=== PATIENT | female | born 1950 | race Caucasian/White ===

== ENCOUNTER 2024-09-23 08:34 | Outpatient (AMB) | payer MEDICARE, SELFPAY ==
--- NOTE | 2024-09-23 08:52 | A.OFFVIS_ITS ---
Vital Signs 09/23/24 09:00 Height 5 ft 2 in Weight 171 lb 4 oz BMI 31.3 BP 110/64 Blood Pressure Location Rt brachial Position Sitting Pulse 80 Pulse Source Pulse Oximeter Pulse Oximetry (%) 94 Oxygen Delivery Method Room Air Intake Visit Reasons: ENP-Ocular Vestibular Migraine Intake Note: Patient presents for a new patient evaluation and treatment for ocular vestibular migraine. Television Engineering Teacher Required: No Accompanied by: Spouse Allergies amlodipine [From Norvasc] Allergy (Verified 09/23/24 08:51) Swelling amoxicillin [From Amoxil] Allergy (Verified 09/23/24 08:51) Itching bacitracin [From Neosporin ([id number])] Allergy (Verified 09/23/24 08:51) Unknown dulaglutide [From Trulicity] Allergy (Verified 09/23/24 08:51) Unknown lisinopril Allergy (Verified 09/23/24 08:51) Cough neomycin [From Neosporin ([id number])] Allergy (Verified 09/23/24 08:51) Unknown polymyxin B [From Neosporin (joz-wav-amizq)] Allergy (Verified 09/23/24 08:51) Unknown HPI Comments Details: 74y/o femal eocmes for neurological evaluation . On July 11 she woke up with dizziness ( vertigo) , feeling off balance , visual aura( saw geometric patterns in both her visual hood. The visual aura lasted about 10-15 minutes and the dizziness lasted about 45 minutes. she did not have headaches associate dwith it. she did not have any weakness, numbness or double vision. she has h/o migraines but has been migraine free sin emenopause. she also has h/o vertigo - BPV and usually vestibular therapy helps her. she has JESSA and was on CPAP but stopped using it when she lost weight. she still has snoring and some daytime fatigue. In 2000 she had a thalamic stroke with left eye pain and face weakness and has been on aspirin 650mg qd [facility].she was also seen by ENT in the past for sudden hearing loss. [facility] Medical History Vertigo Visual aura Unspecified vitamin D deficiency Tubular adenoma of colon Poorly controlled type 2 diabetes mellitus JESSA (obstructive sleep apnea) Nonproliferative diabetic retinopathy Migraine Hyperlipidemia Hypertension CVA (cerebral vascular accident) Goiter Depression Degenerative joint disease (DJD) of lumbar spine Allergic rhinitis Acid reflux Surgical History History of lateral meniscus repair of right knee History of dental surgery Hx of cholecystectomy Family History Father Diabetes Social History Alcohol intake: current Comment: Socially Patient Tobacco Use Status: Never used Tobacco Physical Exam Vital Signs: Last Vital Signs Pulse 80 09/23/24 09:00 BP 110/64 09/23/24 09:00 Pulse Ox 94 09/23/24 09:00 Oxygen Delivery Method Room Air 09/23/24 09:00 BMI result Body Mass Index 31.3 Const General: cooperative, healthy appearing, comfortable and no acute distress Nutritional Appearance: average body habitus Orientation/consciousness: patient oriented x3 Eyes Pupils: Equal, round and reactive pupils present Neuro Other: left facial droop- weakness Mallampatti grade 4 General: patient oriented x3, gait normal, tone normal, moves all extremities and no focal motor deficits Cranial nerves: Yes Facial sensation intact/muscles of mastication intact, Yes Equal, round and reactive pupils present, Yes Bilaterally intact EOM present, Yes Nystagmus not present, Yes Midline tongue present, Yes Symmetric palate elevation present and Yes Ability to bilaterally elevate shoulders present Cognition (Neuro): normal cognition Gait exam (Neuro): Normal gait present Motor exam (neuro): 5/5 motor strength present throughout and Normal motor muscle tone present throughout Deep tendon reflexes (DTR's): Right triceps reflex intensity grade: 2+, Left triceps reflex intensity grade: 2+, Rt Biceps (C5, C6): 2+, Left biceps reflex intensity grade: 2+, Right brachioradialis reflex intensity grade: 2+, Left brachioradialis reflex intensity grade: 2+, Right patellar reflex intensity grade: 2+, Left patellar reflex intensity grade: 2+, Right ankle reflex intensity grade: 1+ and Left ankle reflex intensity grade: 1+ Coordination: [id number] test normal Assessment & Plan Assessment & Plan (1) Visual aura: Comment: ? ocular migraine ? TIA Code(s): H53.9 - Unspecified visual disturbance Category: Medical (2) Vertigo: Comment: Migraine? BPV Code(s): R42 - Dizziness and giddiness Category: Medical (3) JESSA (obstructive sleep apnea): Comment: not on CPAP Code(s): G47.33 - Obstructive sleep apnea (adult) (pediatric) Category: Medical Plan MRI Brain to evaluate for vascular changes SLeep stduy to reevaluate sleep apnea Continue aspirin 325 mg 2tabs qd Monitor for any new symptoms and go to ER for any new neurological symptoms Orders: Orders MR head/brain wo con Today G43.109 - Migraine with aura, not intractable, without status migrainosus, R42 - Dizziness and giddiness RT home sleep study Today G47.10 - Hypersomnia, unspecified, R06.83 - Snoring Coding Level of Care Code New Pt Level 4 (93373) Diagnoses Visual aura H53.9 Vertigo R42 JESSA (obstructive sleep apnea) G47.33
--- OUTSIDE RECORDS SUMMARY | 2024-09-23 08:58 | XMS_ITS | Clinical Summary ---
Author Organization [facility] it Address [address] [place] [address] Care Team Providers Care Lamination Machine Operator Name Role Phone Unavailable Primary Care Provider Unavailabl e Medications omeprazole (PriLOSEC) [address] capsuleIndicati ons:Gastroesoph ageal reflux disease without esophagitis TAKE 1 CAPSULE BY MOUTH EVERY DAY IN THE MORNING 90 capsule 5 Active omeprazole (PriLOSEC) [address] capsuleIndicati ons:Gastroesoph ageal reflux disease without esophagitis TAKE 1 CAPSULE BY MOUTH EVERY DAY IN THE MORNING 90 capsule 5 025 Discontinued Encounters Date Type Department Care Team Description 06/24/2024 Telephone Gastroenterology - [address] [address] Felix Valladares MD from Last 3 Months Social History Tobacco Use Types Packs/Day Years Used Date Smoking Tobacco: Never Assessed Comments Unknown Sex and Gender Information Value Date Recorded Sex Assigned at Not on file Legal Sex Female 10:54 AM EST Gender Identity Not on file Sexual Orientation Not on file Plan of Treatment Health Maintenance Due Date Last Done Comments Breast Cancer Screening 1950 DTaP,Tdap,and Td Vaccines (1 - Tdap) 1970 Pneumococcal Vaccine: 50+ Ye ars (1 of 1 - PCV) 2001 Zoster Vaccines (1 of 2) 2001 Colorectal Cancer Screening: Colonoscopy 03/19/2022 Depression Screening 03/19/2022 Falls Risk Assessment 03/19/2022 Hepatitis C Screening 03/19/2022 Osteoporosis Screening (Bone Density Screening) 03/19/2022 Social Influencers of Health Screening 03/19/2022 COVID-19 Vaccine (2023-2 5 season) 2023 Influenza Vaccine (Season Ended) 2024 RSV Immunization Adult Patie nts (1 - 1-dose 75+ series) 2026 HIB Vaccines Aged Out No longer eligi ble based on patient's age to complete this topic HPV Vaccines Aged Out No longer eligi ble based on patient's age to complete this topic Hepatitis A Vaccines Aged Out No long er eligible based on patient's age to complete this topic Hepatitis B Vaccines Aged Out No long er eligible based on patient's age to complete this topic IPV Vaccines Aged Out No longer eligi ble based on patient's age to complete this topic MMR Vaccines Aged Out No longer eligi ble based on patient's age to complete this topic Meningococcal ACWY Vaccine Aged Out N o longer eligible based on patient's age to complete this topic Meningococcal B Vaccine Aged Out No l onger eligible based on patient's age to complete this topic RSV Immunization Patients Un juwan 20 months Aged Out No longer eligible b ased on patient's age to complete this topic Varicella Vaccines Aged Out No longer eligible based on patient's age to complete this topic
[2024-09-23 09:00] VITALS: BP 110/64; PULSE 80; O2SAT 94; BMI 31.3
== END 2024-09-23 09:48 | disposition home or self-care (01) ==
LOC: HO.HSMS 08:35
PROVIDERS: PCP Internal Medicine; Visit Provider Psychiatry & Neurology Neurology
DX: H53.9 Unspecified visual disturbance (principal); R42 Dizziness and giddiness; G47.33 Obstructive sleep apnea (adult) (pediatric)
CPT/HCPCS: 99204

== ENCOUNTER → 2024-09-23 08:34 | Outpatient (BNVA) | payer MEDICARE, SELFPAY | PROVIDERS: PCP Internal Medicine; Visit Provider Psychiatry & Neurology Neurology | DX: H53.9 Unspecified visual disturbance (principal); R42 Dizziness and giddiness; G47.33 Obstructive sleep apnea (adult) (pediatric) | CPT/HCPCS: 99202 ==

== ENCOUNTER 2024-10-02 08:56 | Outpatient (REF) | payer MEDICARE, SELFPAY ==
--- NOTE | ~2024-10-02 | MR_ITS ---
EXAMINATION: MR BRAIN WITHOUT CONTRAST CLINICAL INFORMATION: Dizziness and giddiness COMPARISON: None available. TECHNIQUE: MRI of the brain was obtained using routine sequences without contrast. FINDINGS: No restricted diffusion. No acute intracranial hemorrhage, mass effect, midline shift, hydrocephalus or herniation. Martino-white matter differentiation is normal. Bilateral multifocal patchy and confluent deep periventricular white matter hyperintense T2 FLAIR signal involving centrum semiovale and heath radiata. Multifocal old lacunar infarct, basal ganglia and extracapsular, the largest in the right thalamus with susceptibility signal and wallerian degeneration into the right cerebral peduncle/midbrain. Prominence of the extra-axial CSF spaces cerebral sulci and ventricles involving mostly the bifrontal and to a lesser extent biparietal poles. Dystrophic calcifications in the anterior interhemispheric falx. Flow-void signal within the main cerebral vessels is normal. Sellar/suprasellar region demonstrated no signal abnormality or masses. Craniocervical junction demonstrates normal position of the cerebellar tonsils. MR/MR head/brain wo con IMPRESSION: No acute stroke/nonhemorrhagic ischemia. Small vessel occlusive disease. Multifocal old lacunar infarcts, the largest with old blood products right thalamus. Bifrontal and to a lesser extent biparietal atrophy. Electronically signed by: Amos Gill MD 10/04/2024 07:53 AM EDT
== END 2024-10-02 08:57 | disposition home or self-care (01) ==
LOC: HO.MRI 08:56
PROVIDERS: PCP Internal Medicine; Visit Provider Psychiatry & Neurology Neurology
DX: G43.109 Migraine with aura, not intractable, without status migrainosus (principal); R42 Dizziness and giddiness
CPT/HCPCS: 70551

== ENCOUNTER → 2024-10-02 08:56 | Outpatient (BNV) | payer MEDICARE, SELFPAY | PROVIDERS: PCP Internal Medicine; Visit Provider Radiology Diagnostic Radiology | DX: R42 Dizziness and giddiness (principal) | CPT/HCPCS: 70551 ==

== ENCOUNTER → 2024-12-09 09:08 | Outpatient (REF) | payer MEDICARE, SELFPAY ==
--- OUTSIDE RECORDS SUMMARY | 2024-12-09 10:13 | XMS_ITS | Clinical Summary ---
Author Organization [facility] it Address [address] [place] [address] Care Team Providers Care Mice Raiser Name Role Phone Unavailable Primary Care Provider Unavailabl e Medications omeprazole (PriLOSEC) [address] Barnhart ns:Gastroesophag eal reflux disease without esophagitis TAKE 1 CAPSULE BY MOUTH EVERY DAY IN THE MORNING 90 capsule 09/06/2024 Active Social History Tobacco Use Types Packs/Day Years Used Date Smoking Tobacco: Never Assessed Comments Unknown Sex and Gender Information Value Date Recorded Sex Assigned at Not on file Legal Sex Female 10:54 AM EST Gender Identity Not on file Sexual Orientation Not on file Plan of Treatment Upcoming Encounters Date Type Department Care Team ([facility] st Contact Info) Description 03/15/2025 11:00 AM EST Office Visit Gastroenterology - [address] [phone] All Casey MD [address] [address] Health Maintenance Due Date Last Done Comments Breast Cancer Screening 1950 DTaP,Tdap,and Td Vaccines (1 - Tdap) 1970 Pneumococcal Vaccine: 50+ Ye ars (1 of 1 - PCV) 2001 Zoster Vaccines (1 of 2) 2001 Colorectal Cancer Screening: Colonoscopy 03/19/2022 Falls Risk Assessment 03/19/2022 Hepatitis C Screening 03/19/2022 Medicare Annual Wellness Visit 03/19/2022 Osteoporosis Screening (Bone Density Screening) 03/19/2022 Social Influencers of Health Screening 03/19/2022 COVID-19 Vaccine (1 - 2023-2 5 season) 2023 Depression Screening 04/21/2024 Influenza Vaccine (#1) 2024 RSV Immunization Adult Patie nts (1 [...] on patient's age to complete this topic Insurance MEDICARE [facility]
== END ==
LOC: HO.SL 09:08
PROVIDERS: PCP Internal Medicine; Visit Provider Psychiatry & Neurology Neurology
DX: R06.83 Snoring (principal); G47.10 Hypersomnia, unspecified
CPT/HCPCS: 95806

== ENCOUNTER → 2024-12-09 09:53 | Outpatient (BNV) | payer MEDICARE, SELFPAY | PROVIDERS: PCP Internal Medicine; Visit Provider Psychiatry & Neurology Neurology | DX: G47.33 Obstructive sleep apnea (adult) (pediatric) (principal) | CPT/HCPCS: 95806 ==

== ENCOUNTER 2025-01-24 09:53 | Outpatient (AMB) | payer MEDICARE, SELFPAY ==
--- NOTE | 2025-01-24 09:56 | MHC.OFFVIS ---
Vital Signs 01/24/25 09:57 Height 5 ft 2 in Weight 169 lb 2 oz BMI 30.9 BP 132/80 Blood Pressure Location Rt brachial Position Sitting Pulse 90 Pulse Source Pulse Oximeter Pulse Oximetry (%) 95 Oxygen Delivery Method Room Air Intake Visit Reasons: 4m follow up Intake Note: Follow up JESSA not on CPAP, Migraine ? TIA, Dizziness and Giddiness Human Resources Benefits Assistant Required: No Accompanied by: Spouse Allergies amlodipine (From Norvasc) Allergy (Verified 01/24/25 09:56) Swelling amoxicillin (From Amoxil) Allergy (Verified 01/24/25 09:56) Itching bacitracin (From Neosporin ([id number]-ubg-afnpr)) Allergy (Verified 01/24/25 09:56) Unknown dulaglutide (From Trulicity) Allergy (Verified 01/24/25 09:56) Unknown lisinopril Allergy (Verified 01/24/25 09:56) Cough neomycin (From Neosporin (wpi-rme-irxch)) Allergy (Verified 01/24/25 09:56) Unknown polymyxin B (From Neosporin (lsh-mle-mzgcv)) Allergy (Verified 01/24/25 09:56) Unknown Medication List - Last Reconciled 01/24/25 by Fawn Devlin MD aspirin (Ecotrin) 650 mg PO DAILY atorvastatin 20 mg PO DAILY blood sugar diagnostic (Transparency SoftwareTouch Ultra Test strips) As directed cholecalciferol (vitamin D3) 25 mcg PO DAILY empagliflozin (Jardiance) 25 mg PO DAILY fluticasone propionate 50 mcg/actuation 2 sprays intranasal DAILY furosemide 20 mg PO DAILY gabapentin mg PO glimepiride 4 mg PO BID irbesartan 150 mg PO DAILY levothyroxine mcg PO metformin ER 500 mg PO BID nystatin topical BID omeprazole 20 mg PO DAILY prucalopride (Motegrity) 2 mg PO DAILY semaglutide (Ozempic) 2 mg subcut QWEEK triamterene-hydrochlorothiazid 37.5-25 mg 1 cap PO DAILY HPI Comments Details: 74y/o female comes for follow up.No dizziness since her last visit.No headaches since last visit. On July 11 she woke up with dizziness ( vertigo) , feeling off balance , visual aura( saw geometric patterns in both her visual ohod. The visual aura lasted about 10-15 minutes and the dizziness lasted about 45 minutes. she did not have headaches associated with it. she did not have any weakness, numbness or double vision. she has h/o migraines but has been migraine free since menopause. she also has h/o vertigo - BPV and usually vestibular therapy helps her. she has JESSA and was on CPAP but stopped using it when she lost weight. she still has snoring and some daytime fatigue. HST 12/2024- mild sleep apnea. AHI 6 O2 lesley 86% In 2000 she had a thalamic stroke with left eye pain and face weakness and has been on aspirin 650mg qd [facility].she was also seen by ENT in the past for sudden hearing loss. [facility] Medical History Vertigo Visual aura Unspecified vitamin D deficiency Tubular adenoma of colon Poorly controlled type 2 diabetes mellitus JESSA (obstructive sleep apnea) Nonproliferative diabetic retinopathy Migraine Hyperlipidemia Hypertension CVA (cerebral vascular accident) Goiter Depression Degenerative joint disease (DJD) of lumbar spine Allergic rhinitis Acid reflux Surgical History History of lateral meniscus repair of right knee History of dental surgery Hx of cholecystectomy Family History Father Diabetes Social History Alcohol intake: current Comment: Socially Patient Tobacco Use Status: Never used Tobacco Physical Exam Vital Signs: Last Vital Signs Pulse 90 01/24/25 09:57 BP 132/80 01/24/25 09:57 Pulse Ox 95 01/24/25 09:57 Oxygen Delivery Method Room Air 01/24/25 09:57 BMI result Body Mass Index 30.9 Results Reviewed Results Reviewed: MRI Brain - 2024 No acute stroke/nonhemorrhagic ischemia. Small vessel occlusive disease. Multifocal old lacunar infarcts, the largest with old blood products right thalamus. Bifrontal and to a lesser extent biparietal atrophy. Assessment & Plan Assessment & Plan (1) Visual aura: Comment: ? ocular migraine ? TIA Code(s): H53.9 - Unspecified visual disturbance Category: Medical (2) Vertigo: Comment: Migraine? BPV Code(s): R42 - Dizziness and giddiness Category: Medical (3) JESSA (obstructive sleep apnea): Comment: mild on HST Code(s): G47.33 - Obstructive sleep apnea (adult) (pediatric) Category: Medical Plan MRI Brain reviewed . discussed about diabetes control SLeep study - mild - AHI 6 O2 lesley 86% Continue aspirin 325 mg 2tabs qd Monitor for any new symptoms and go to ER for any new neurological symptoms Coding Level of Care Code Est Pt Level 4 (24460) Complex EM visit Add On G2211 Diagnoses Visual aura H53.9 Vertigo R42 JESSA (obstructive sleep apnea) G47.33
[2025-01-24 09:57] VITALS: BP 132/80; PULSE 90; O2SAT 95; BMI 30.9
--- OUTSIDE RECORDS SUMMARY | 2025-01-24 11:20 | XMS_ITS | Encounter Summary ---
Author Organization [facility] Address [address] [place] [address] Phone Care Team Providers Care Pumping Supervisor Name Role Phone Jodi Ochoa MD Primary Care Provider Encounter Details Date Type Department Care Team (Late st Contact Info) Description 01/13/2025 Orders Only [facility] [address] [place] [phone] Jazzy Mcfarland [place], [place] [address] [place] [address] [email or web address] Acquired hypothyroidism; Type 2 diabetes mellitus with peripheral neuropathy Social History Tobacco Use Types Packs/Day Years Used Date Smoking Tobacco: Never Passive Smoke Exposure: Past Smokeless Tobacco: Never Passive Exposure Comments:kristen mcnally was a chainsmoker at home Alcohol Use Standard Drinks/Week Comments Yes 7 (1 standard drink = 0.6 oz pur e alcohol) glass of wine with dinner Education Answer Date Recorded Are you interested in more education? Not on stephen e 08/16/2022 Are you concerned about learning? Not on file 08/16/2022 No 08/16/2022 No 08/16/2022 Digital Access Answer Date Recorded No 09/13/2022 No 09/13/2022 Reliable internet access at home? Not on file 09/13/2022 Device with a working camera? Not on file Comments No Sex and Gender Information Value Date Recorded Sex Assigned at Not on file Legal Sex Female 1:41 PM EDT Gender Identity Not on file Sexual Orientation Not on file documented as of this encounter Progress Notes * Juani Coe MD - 01/13/2025 9:12 AM EDT Rx sent documented in this encounter Plan of Treatment Upcoming Encounters Date Type Department Care Team (Late st Contact Info) Description 04/04/2025 10:20 AM EST Office Visit [facility] [place] [address] [place] [address] Danielle Tejeda PA-C [address] [place] [phone] [email or web address] 07/11/2025 10:20 AM EDT Office Visit [facility] [place] [address] [place] [address] Juani Coe MD [address] [address] [email or web address] documented as of this encounter Procedures Procedure Name Priority Date/Time Associated Diagnosis Comments HEMOGLOBIN A1C Routine 01/01/2025 9:13 AM EDT Type 2 diabetes mellitus with peripheral neuropathy ASPARTATE AMINOTRANSFERASE (AST) Routine 01/01/2025 9:13 AM EDT Type 2 diabetes mellitus with peripheral neuropathy ALANINE AMINOTRANSFERASE (ALT) Routine 01/01/2025 9:13 AM EDT Type 2 diabetes mellitus with peripheral neuropathy BASIC METABOLIC PANEL Routine 01/01/2025 9:13 AM EDT Type 2 diabetes mellitus with peripheral neuropathy TSH WITH REFLEX Routine 01/01/2025 9:13 AM EDT Acquired hypothyroidism documented in this encounter Results * Hemoglobin A1c (01/01/2025 9:13 AM EDT) Blood Juani Coe MD LAB BLOOD ORDERABLES F inal Result Performing Organization Address [facility]/ZIP Co de Phone Number [address] [address] * Aspartate aminotransferase (AST) (01/01/2025 9:13 AM EDT) Blood Juani Coe MD LAB BLOOD ORDERABLES F inal Result Performing Organization Address [facility] Co de Phone Number [address] [address] * Alanine aminotransferase (ALT) (01/01/2025 9:13 AM EDT) Blood Result [facility] Juani Coe MD LAB BLOOD ORDERABLES F inal Result Performing Organization Address [facility] Co de Phone Number [address] [address] * Basic metabolic panel (01/01/2025 9:13 AM EDT) Blood Juani Coe MD LAB BLOOD ORDERABLES F inal Result Performing Organization Address City/[facility] Co de Phone Number [address] [address] * TSH with reflex (01/01/2025 9:13 AM EDT) Blood us Juani Coe MD LAB BLOOD ORDERABLES F inal Result Performing Organization Address [facility] Co de Phone Number [address] [address] documented in this encounter Visit Diagnoses Diagnosis Acquired hypothyroidism Unspecified hypothyroidism Type 2 diabetes mellitus with peripheral neuropathy documented in this encounter Care Teams Pumping Supervisor Relationship Specialty Start Date End Date Jodi Ochoa MD [address] [place] [phone] PCP - General Internal Medicine 07/06/24 documented as of this encounter Additional Source Comments The information contained in this document represents components of the legal health record. It is not the complete legal health record.[facility]
--- OUTSIDE RECORDS SUMMARY | 2025-01-24 11:21 | XMS_ITS | Clinical Summary ---
Author Organization [facility] Address [address] [place] [phone] Phone Care Team Providers Care Casualty Insurance Claim Adjuster Name Role Phone Jodi Ochoa MD Primary Care Provider Allergies Active Allergy Reactions Criticality Noted Date Comments Amlodipine Swelling 01/03/2021 Leg swelling Other reaction(s): Edema, Not Indicated Amoxicillin Hives 01/03/2021 Other reaction(s): Itchy skin eruption Other reaction(s): Not Indicated Bacitracin Other (See Comments) 01/13/2023 Formaldehyde Swelling 01/03/2021 Facial swelling Hay Fever And Allergy Relief 01/03/2021 Lisinopril Cough 01/03/2021 Other reaction(s): Not Indicated, [D]Cough Morphine GI Upset 01/19/2021 Zloytqws-Djlfzkpkbp-Gxv ymyxin 01/13/2023 Benzalkonium Chloride 01/03/2021 Oxycodone GI Upset 01/19/2021 Tramadol GI Upset 01/19/2021 Dulaglutide 01/13/2023 rash Medications omeprazole (PRILOSEC) 20 MG tablet Take 20 mg by mouth daily. Active triamterene-hydro CHLOROthiazide (DYAZIDE) 37.5-25 mg per capsule Take 1 capsule by mouth every evening. Active irbesartan (AVAPRO) 150 MG tablet Take 150 mg by mouth daily. Active atorvastatin (LIPITOR) 20 MG tablet Take 20 mg by mouth daily. Active aspirin 325 MG tablet Take 650 mg by mouth daily. Active nystatin cream Apply 1 Application topically as needed. 08/11/2 023 Active prucalopride (MOTEGRITY) 2 mg tablet Take 2 mg by mouth daily. Active furosemide (LASIX) 20 MG tablet Take 1 tablet by mouth daily as needed. 024 Active fluticasone propionate (FLONASE) 50 mcg/actuation nasal spray 1 spray by Nasal route as needed. 024 Active diphenhydrAMINE-a cetaminophen (TYLENOL PM) 25-500 mg Tab Take 1 tablet by mouth nightly at bedtime as needed. Active JARDIANCE 25 mg tabletIndications :Type 2 diabetes mellitus with hyperglycemia, without long-term current use of insulin TAKE 1 TABLET BY MOUTH EVERY DAY 90 tablet 1 025 Active glimepiride (AMARYL) 4 MG tabletIndications :Type 2 diabetes mellitus with hyperglycemia, without long-term current use of insulin TAKE 2 TABLETS BY MOUTH EVERY DAY 180 tablet 1 025 Active metFORMIN (GLUCOPHAGE-XR) 500 MG 24 hr tabletIndications :Type 2 diabetes mellitus with hyperglycemia, without long-term current use of insulin TAKE 2 TABLETS BY MOUTH EVERY DAY 180 tablet 1 025 Active cholecalciferol (VITAMIN D3) 50,000 unit capsule Take 1 capsule by mouth once a week. 025 Active clindamycin (CLEOCIN) 300 MG capsule TAKE 2 CAPSULES BY MOUTH 1HR PRIOR TO DENTAL PROCEDURES 025 Active gabapentin (NEURONTIN) 100 MG capsuleIndication s:Restless leg syndrome Take 2 capsules (200 mg total) by mouth nightly at bedtime. 180 capsule 1 025 Active Revision MilitaryTOUCH ULTRA TEST Strp stripsIndications :Type 2 diabetes mellitus with peripheral neuropathy 1 each by Miscellaneous route daily. Dx E11.65 100 strip 3 025 Active levothyroxine (SYNTHROID, LEVOTHROID) 88 MCG tabletIndications :Acquired hypothyroidism TAKE 1 TABLET BY MOUTH EVERY DAY 6 DAYS A WEEK, SKIP 7TH DAY OR DIRECTED 78 tablet 1 025 Active semaglutide (OZEMPIC) 2 mg/dose (8 mg/3 mL) subcutaneous injection penIndications:Ty pe 2 diabetes mellitus with peripheral neuropathy Inject 2 mg under the skin every 7 days. 3 mL 5 025 Active levothyroxine (SYNTHROID, LEVOTHROID) 88 MCG tabletIndications :Acquired hypothyroidism 1 tablet, orally, six days a week, skip the 7th day, or as directed 78 tablet 1 025 2024 Discontinued semaglutide (OZEMPIC) 1 mg/dose (4 mg/3 mL) subcutaneous injection penIndications:Ty pe 2 diabetes mellitus with peripheral neuropathy Inject 1 mg under the skin every 7 days. 3 mL 5 025 2024 Discontinued(D ose adjustment) Active Problems Problem Noted Date Diagnosed Date Allergic rhinitis 01/13/2023 01/13/2023 Gastroesophageal reflux disease 01/13/2023 01/13/2023 Hyperlipidemia 01/13/2023 01/13/2023 Hypertension 01/13/2023 01/13/2023 Migraine 01/13/2023 01/13/2023 JESSA (obstructive sleep apnea) 01/13/2023 Restless legs syndrome 01/13/2023 Assessment & Plan (12/21/2024 2:38 PM EDT): Well controlled w/ low dose gabapentin. Assessment & Plan (07/07/2023 1:01 PM EDT): Had requested refill/sent. Has been prescribed by PCP for RLS so would request future refills from her. Hypothyroidism 09/24/2022 09/24/2022 Assessment & Plan (12/21/2024 2:36 PM EDT): Euthyroid on recent labs. Will continue current & monitor. Assessment & Plan (10/04/2024 1:16 PM EDT): Euthyroid on recent labs, will maintain dosing. Labs ordered to be done prior to next visit Assessment & Plan (07/06/2024 2:55 PM EDT): Euthyroid on recent labs. Continue current. To call/message with symptoms concerning for thyroid levels being off (unexplained change in energy, weight, or bowels or feeling too cold or too warm) or more than 10-15 pound change in weight. Assessment & Plan (03/31/2024 9:17 AM EST): Will check levels to determine if medication adjustments are needed Assessment & Plan (01/06/2024 11:10 AM EDT): Reports good consistency taking rx. Last TSH was normal. She has been taking close to calcium. Advised to separate LT4 from calicum & will repeat labs @ next visit, sooner prn symptoms of thyroid dysfunction or > 10-15# weight change, or as otherwise clinically indicated. Assessment & Plan (09/29/2023 12:37 PM EDT): She has consistently taken her levothyroxine at night with the rest of her medications. She had blood work done at the end of August will request the results to be able to review and determine if medication adjustments are needed Assessment & Plan (07/07/2023 1:00 PM EDT): Reports good consistency taking rx appropriately. Await labs done this morning. Will adjust rx as appropriate. To call/message via portal if hasn't heard from me with results within 1-2 weeks. If levels normal, will repeat labs q6-12 months, sooner prn symptoms of thyroid dysfunction or > 10-15# weight change, or as otherwise clinically indicated. Assessment & Plan (03/31/2023 11:47 AM EST): Will check levels to determine if medication adjustments are needed Assessment & Plan (01/13/2023 12:47 PM EDT): Euthyroid on recent labs. Assessment & Plan (09/24/2022 4:42 PM EDT): She is consistent with taking her levothyroxine. She is taking 1 tablet 6 days a week and skipping the 7th day. Will check levels to determine if medication adjustments are needed Depression 07/11/2010 01/13/2023 Complex tear of medial menis cus of right knee as current injury Type 2 diabetes mellitus with peripheral neuropa thy Assessment & Plan (12/21/2024 2:38 PM EDT): Control improved with ozempic. Continue to work on eating healthy/keeping active. To call/send in log with issues with glycemic control. Scheduled w/ ophtho. Umalb/creat up to date, normal. BP under good control. Foot & nail care ok. Assessment & Plan (10/04/2024 1:17 PM EDT): Control is reasonable based upon the patient's SMBG readings. She is not using any medications to cause hypoglycemia. Will maintain her regimen. Continue to work on eating healthy and being active. To call or message with any issues managing her glucose levels. Up to date with ophtho. Lab results are pending. Labs ordered to be done prior to next visit. I have maintained a long-term, longitudinal relationship with this patient, overseeing care of chronic conditions, including diabetes. This care relationship has significantly influenced my decision-making and treatment plans during today's encounter. Assessment & Plan (07/06/2024 2:57 PM EDT): Control remains suboptimal, although improved with the addition of rybelsus (having previously deteriorated off of ozempic, in part related to side effects, in part related to cost). Discussed potential ophtho side effects of ozempic (vs class effect). She thinks she may have slacked off on her end with improvement in sugars & wants to work on improving diet/exercise before adjusting medications. Continue to work on eating healthy/keeping active. To call/send in log with issues with glycemic control. Up to date w/ ophtho. Umalb/creat up to date, normal. BP under good control. Assessment & Plan (03/31/2024 9:21 AM EST): Control is good based upon the patient's SMBG readings. She is not using any medications to cause hypoglycemia. Will maintain her regimen. Continue to work on eating healthy and being active. To call or message with any issues managing her glucose levels. Up to date with ophtho. Labs ordered Assessment & Plan (01/06/2024 11:14 AM EDT): Control deteriorated off of ozempic (in part related to side effects, in part related to cost. Has just started rybelsus. Discussed role of diet, exercise, medications. @ last visit she commented she did not want insulin because it would eat away at her organs . Discussed this along with the risks of persistent hyperglycemia. Will see how she does with rybelsus. Would let us know how she is doing & if tolerating would increase to the 7 mg dose. Continue to work on eating healthy/keeping active. To call/send in log with issues with glycemic control. Up to date w/ ophtho. BP under good control. Assessment & Plan (09/29/2023 12:36 PM EDT): Control is reasonable but not optimal based upon the patient's SMBG readings. No frequent or severe hypoglycemia. She has been off of ozempic for over a month. Her glucose levels have gone higher being off of it. She has been taking her glimepiride and jardiance at night before bed. Discussed the proper time she needs to take these medications. She will work on changing this. Discussed that she may need to consider insulin but she doesn't to use insulin. She thinks she would not tolerate it and it can eat away at her other organs. Her daughter in law is a research scientist immunology and also agrees she should stay away from insulin use. She would rather go back on ozempic if needed. Continue to work on eating healthier and being active. To call or message with any issues managing her glucose levels. Up to date with opho. Labs were done at [facility] will call for results Assessment & Plan (07/07/2023 1:03 PM EDT): Control reasonable on current rx. Ozempic is expensive for her. She would like to hold. She does not feel it is primary cause of GI symptoms, which pre-dated dx of DM, although it certainly might be worsening. Will go ahead & discontinue. If control deteriorates, to call & would advise she add basal insulin. Continue to work on eating healthy/keeping active. To call/send in log with issues with glycemic control. Up to date w/ ophtho. Umalb/creat up to date, normal. BP under good control. Assessment & Plan (03/31/2023 12:07 PM EST): Control is good based upon the patient's SMBG readings. No frequent or severe hypoglycemia. She didn't realize she was supposed to increase her metformin at her last visit with Dr Coe. Will hold off on increasing her metformin until can review her labs done last week. Will then let her know if to continue with 2 metformin tablets or increase to 3. Continue to work on eating healthy and being active. To call or message with any issues managing her glucose levels. Scheduled to see ophtho later this month. Recent labs requested, orders given to do prior to next visit. Assessment & Plan (01/13/2023 12:47 PM EDT): Control has been suboptimal. No frequent or severe hypoglycemia. She has not been as active, but hoping to increase activity. We will try a slight increase in metformin as well. Discussed plan to shift from ozempic to rybelsus, which she would prefer to avoid injections. Suggested she consider sticking w/ ozempic as might be more potent. She does have hx gastroparesis, not certain ozempic has impacted symptoms. Continue to work on eating healthy & keeping active. To call or send in BG with problems with glycemic control. Will do labs soon. To call if hasn't heard from us within 1-2 weeks. Up to date with opho. Foot & nail care good. Umalb/creat up to date, normal. BP under reasonable control. Assessment & Plan (09/24/2022 4:46 PM EDT): Control is reasonable but not optimal based upon the patient's limited SMBG readings. No frequent or severe hypoglycemia. She would like to switch her ozempic to rybelsus due to both cost and it being a pill rather than injection. Discussed how to take the rybelsus- 30 minutes before any other medication or foor with no more than 4 ounces of water. She will finish her ozempic first and then start the rybelsus. She will call or send a message through the patient gateway with any issues getting her medications. Continue to work on eating healthy and being active. Up to date with ophtho. Labs ordered today medical terminologist current use of oral hypoglycemic drug Assessment & Plan (03/31/2024 9:21 AM EST): Will maintain metformin, jardiance, and rybelsus dosing Long-term (current) use of i njectable non-insulin antidiabetic drugs Encounters Date Type Department Care Team Description 01/14/2025 Orders Only [facility] [address] [place] [address] [place] [id number] Juani Coe MD Type 2 diabetes mellitus with peripheral neuropathy (Primary Dx) 01/13/2025 Orders Only [facility] [address] [place] [address] [place] [address] Jazzy Mcfarland MA Acquired hypothyroidism; Type 2 diabetes mellitus with peripheral neuropathy 01/05/2025 Refill [facility] [address] [place] [address] Juani Coe MD Medication Refill 12/21/2024 11:20 AM EDT Office Visit [address] [phone] Juani Coe MD Type 2 diabetes mellitus with peripheral neuropathy (Primary Dx); Acquired hypothyroidism; Restless leg syndrome; [facility] current use of oral hypoglycemic drug; Long-term (current) use of injectable non-insulin antidiabetic drugs; Restless legs syndrome 12/17/[address] [facility] [place] [address] Juani Coe MD 12/11/2024 Refill [facility] [address] [place] [address] [place] [address] Danielle Tejeda PA-C Medication Refill from Last 3 Months Immunizations Immunization Administration Dates Next Due COVID-19 (Pre-02/10) Moderna Vaccine, mRNA, PF 04/15/2021 COVID-19, Unspecified Formulation 04/15/2021 DTaP 01/06/2009 INFLUENZA, SPLIT VIRUS, TRIVALENT PF 02/15/2015 INFLUENZA, SPLIT VIRUS, TRIV ALENT W/ PRESERVATIVE IM 02/20/2022,02/06/2021,03/29/2020,01/14,01/29/2017,03/01/2016,02/19/2015 ,02/15/2015,03/25/2014,03/13/2013,02/21 Influenza High-Dose Quadriva lent Preservative Free IM 03/29/2020 Influenza Quadrivalent Prese rvative Free IM 01/02/2023,03/25/2014 Influenza Trivalent Adjuvant ed Preservative free IM 01/29/2017 Influenza, Unspecified Formulation 01/14/2024 Influenza, whole 01/11/2019 Pneumococcal polysaccharide PPSV23 01/06/2009 Tdap 08/09/2022 Family History Medical History Relation Comments Alcohol abuse Brother Drug abuse Brother Seizures Brother Epilepsy Sister Relation Status Comments Brother Alive Sister in her 50sh /o grand mal seizures Social History Tobacco Use Types Packs/Day Years Used Date Smoking Tobacco: Never Passive Smoke Exposure: Past Smokeless Tobacco: Never Tobacco Cessation:Counseling Given: Not Answered Passive Exposure Comments:mother was a chainsmoker at home Alcohol Use [...] on file Sexual Orientation Not on file Last Filed Vital Signs Vital Sign Reading Time Taken Comments Blood Pressure 109/64 12/21/2024 11:24 AM EDT Pulse 85 12/21/2024 11:24 AM EDT Temperature 36.2 C (97.1 F) 12/21/2024 11:24 AM EDT Respiratory Rate 20 09/27/2024 10:13 AM EDT Oxygen Saturation 96% 12/21/2024 11:24 AM EDT Inhaled Oxygen Concentration - - Weight 75.3 kg (166 lb) 12/21/2024 11:24 AM EDT Height 155.2 cm (5' 1.1 ) 12/21/2024 11:24 AM ED T Body Mass Index 31.26 12/21/2024 11:24 AM EDT Plan of Treatment Upcoming Encounters Date Type Department Care Team (Late st Contact Info) Description 04/04/2025 10:20 AM EST Office Visit [facility] [address] [phone] Danielle Tejeda PA-C [address] [place] [phone] [email or web address] 07/11/2025 10:20 AM EDT Office Visit [facility] [address] [phone] Juani Coe MD [address] [place] [phone] [email or web address] Health Maintenance Due Date Last Done Comments DEPRESSION SCREENING 1963 HEPATITIS C SCREENING 1969 COLOGUARD 1996 COLONOSCOPY 1996 COLORECTAL CANCER SCREENING 1996 FIT TEST 1996 FOBT 1996 SIGMOIDOSCOPY 1996 VIRTUAL COLONOSCOPY 1996 RSV VACCINE (1 - Risk 50-74 years 1-dose series) 2001 ZOSTER VACCINES (1 of 2) 2001 PNEUMOCOCCAL VACCINES (50+ years) (2 of 2 - PCV) 01/06/2010 01/06/2009 OSTEOPOROSIS SCREENING INITIAL (ONE-TIME) 2016 DIABETIC EYE EXAM 09/24/2022 MAMMOGRAM 10/11/2024 10/11/2022 INFLUENZA VACCINE (#1) 2024 , 01/02/2023, 02/20/2022, Additional history exists COVID-19 VACCINE (2024- season) 2024 04/15/2021, 04/15/2021, 06/29/2020 HEMOGLOBIN A1C 12/25/2024 09/24/2024, 12/20, 07/07/2023 BLOOD PRESSURE 06/20/2025 12/21/2024 CREATININE LEVEL 01/01/2026 01/01/2025, 01/2025, 09/24/2024, Additional history exists POTASSIUM LEVEL 01/01/2026 01/01/2025, 09/19, 09/24/2024, Additional history exists TSH LEVEL 01/01/2026 01/01/2025, 09/19, 09/24/2024, Additional history exists Adult Td,Tdap Booster 08/09/2032 08/09/2022 SMOKING STATUS SCREENING (Once After 26 Yrs) Completed 12/21/2024 HEPATITIS A VACCINES Aged Out No long er eligible based on patient's age to complete this topic HIB VACCINES Aged Out No longer eligi ble based on patient's age to complete this topic MENINGOCOCCAL VACCINES (ACWY) Aged Out No longer eligible based on patient's age to complete this topic MENINGOCOCCAL VACCINES (B) Aged Out N o longer eligible based on patient's age to complete this topic Medical Devices Not on file Procedures Procedure Name Priority Date/Time Associated Diagnosis [...] Routine 01/01/2025 9:13 AM EDT Acquired hypothyroidism OUTSIDE HEMOGLOBIN A1C Routine 09/24/2024 HM MAMMOGRAPHY Routine 10/11/2022 from Last 3 Months or Most Recently Relevant to Health Maintenance Results * Hemoglobin A1c (01/01/2025 9:13 AM EDT) Blood Juani Coe MD LAB BLOOD ORDERABLES F inal Result Performing Organization Address [facility] Co de Phone Number [address] [address] * Aspartate aminotransferase (AST) (01/01/2025 9:13 AM EDT) Blood us Juani Coe MD LAB BLOOD ORDERABLES F inal Result Performing Organization Address [facility] Co de Phone Number [address] [address] * Alanine aminotransferase (ALT) (01/01/2025 9:13 AM EDT) Blood us Juani Coe MD LAB BLOOD ORDERABLES F inal Result Performing Organization Address [facility] Co de Phone Number [address] [address] * Basic metabolic panel (01/01/2025 9:13 AM EDT) Blood us Juani Coe MD LAB BLOOD ORDERABLES F inal Result Performing Organization Address [facility] Co de Phone Number [address] [address] * TSH with reflex (01/01/2025 9:13 AM EDT) Blood Juani Coe MD LAB BLOOD ORDERABLES F inal Result [facility] [address] [place] [address] * Outside HbA1c (09/24/2024) Hemoglobin A1c - External 8.7 % Historical Provider LAB BLOOD ORDERABLES Ashlie l Result * HM MAMMOGRAPHY FOR RESULT ENTRY ONLY (10/11/2022) Mammogram BIRADS 2 Historical Provider HEALTH MAINTENANCE Final Result from Last 3 Months or Most Recently Relevant to Health Maintenance Insurance MEDICARE PART A & B [facility] MEDEX SUPPLEMENT MEDICARE PART A & B Member Subscriber Plan / Payer (Ef fective 2017-Present) Name:Agnes Villalba Member ID:[id number] Relation to Subscriber:Self Name:Agnes Villalba Subscriber ID:[id number] Payer ID:[id number] Group ID:Not on file Type:Medicare Address: [employer] [address] [employer] CROSS MEDEX SUPPLEMENT MEDICARE PART A & B [employer] MEDEX SUPPLEMENT MEDICARE PART A & B [employer] MEDEX SUPPLEMENT MEDICARE PART A & B [employer] MEDEX SUPPLEMENT MEDICARE PART A & B [employer] MEDEX SUPPLEMENT MEDICARE PART A & B [employer] MEDEX SUPPLEMENT MEDICARE PART A & B [facility] MEDEX SUPPLEMENT MEDICARE PART A & [place] [id number] [employer] MEDEX SUPPLEMENT Advance Directives For more information, please contact: [phone] (9AM - 5PM [facility], Friday-Friday) Documents on File Type Date Recorded 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 It is not the complete legal health record.[facility]
--- OUTSIDE RECORDS SUMMARY | 2025-01-24 11:21 | XMS_ITS | Encounter Summary ---
Author Organization [facility] Address [address] [address] Phone Care Team Providers Care Mini Shifter Name Role Phone Galina Ames NP Primary Care Provider + Jodi Ochoa MD Primary Care Provider Encounter Details Date Type Department Care Team (Late Contact Info) Description 01/23/2021 Procedure Pass OR Admitting Dept - Virtual Department [address] [place] [address] Social History Tobacco Use Types Packs/Day Years Used Date Smoking Tobacco: Never Smokeless Tobacco: Never Alcohol Use Standard Drinks/Week Comments Yes 0 (1 standard drink = 0.6 oz pur e alcohol) 2 glasses of wine a month Comments No Sex and Gender Information Value Date Recorded Sex Assigned at Not on file Legal Sex Female 1:41 PM EDT Gender Identity Not on file Sexual Orientation Not on file documented as of this encounter Plan of Treatment Upcoming Encounters Date Type Department Care Team (Late Contact Info) Description 04/04/2025 10:20 AM EST Office Visit [facility] Endocrinology [address] [phone] Danielle Tejeda PA-C [address] [place] [address] 07/11/2025 10:20 AM EDT Office Visit [facility] Endocrinology [address] [place] [address] Juani Coe MD [address] [place] [phone] [email or web address] documented as of this encounter Visit Diagnoses Not on filedocumented in this encounter Care Teams Mini Shifter Relationship Specialty Start Date End Date Galina Ames NP [address] [place] [phone] PCP - General Nurse Practitioner 11/16/20 07/05/24 Jodi Ochoa MD [address] [place] [address] PCP - General Internal Medicine 07/06/24 documented as of this encounter Additional Source Comments The information contained in this document represents components of the legal health record. It is not the complete legal health record.[facility]
--- OUTSIDE RECORDS SUMMARY | 2025-01-24 11:21 | XMS_ITS | Data Portability ---
Author Organization [place] - [facility], Allergy Address [address] [address] Care Team Providers Care Brickmason Supervisor Name Role Phone TENNILLE YANG Primary Care Provider Assessment Encounter Date Assessment Date Assessment LastModified by Organization Details LastModified Time 09/10/2024 09/10/2024 74-year-old female presents for evaluation of vertigo. Audiometric testing was obtained today showing stable sensorineural hearing loss bilaterally, right worse than left. Given audiogram is stable would not recommend updated MRI for asymmetry. We have reviewed that there is no sign of fluid today and fluid would not cause the symptoms she is describing. More likely she was experiencing vestibular migraine with ocular symptoms. It is also possible that this was related to TIA. I have strongly recommended she follow-up with her neurologist regarding suspected persistent TIA. She will call her neurologist today for evaluation. Vertigo she is describing is certainly not otologic in nature. Follow-up with ENT as needed. [email or web address] Not available 09/10/2024 13:58:12 09/10/2024 09/10/2024 Follow up with referring provider. [email or web address] Not available 09/10/2024 13:06:03 09/15/2024 09/15/2024 Cleaned aid (right) Changed speaker wire to 5.0 1M; dome to small vented dome. Conducted Verifit and tweaked settings. Encouraged consistent hearing aid use and did not recommend an aid for the left ear until she wears the right one consistently. Pt has expiration date and understands we want to send aid back to [facility] prior to its end for service and to have the battery changed. Reinstructed how to change cerustops. Return prn [email or web address] Not available 09/15/2024 12:31:50 Plan of Treatment Reminders Order Date Submit Date Provider Last Modified By Organization Details Last Modified Time Details Appointments None record ed. Lab None record ed. Referral None record ed. Procedures None record ed. Surgeries None record ed. Imaging None record ed. Medication Orders None record ed. Patient TargetsNo targets recorded. Patient InstructionsNo instructions recorded. Reason for Referral None Reported. Results Created Date Observation Date Name Description Value Unit Range Abnormal Flag Note LastModifiedBy Organization Detail LastModifiedTime 09/11/19 25 audio gram No observ ation record ed. BARCODE Not Available 2024 14:17:18 Result Notes None recorded. Problems Name Problem SNOMED Code Status Onset Date Resolution Date Notes Provider Name and Address Organization Details Recorded Time Tinnitus of right ear 68869625669 08 Active 2022 Tinnitus, right ear; Note: Date Diagnosed : 11/27/2022 10:56 AM (H93.11) Not Available [facility] 4 02:34:26 Dizziness and giddiness 362982160 Active 2022 Dizziness and giddiness ; Note: Date Diagnosed : 11/27/2022 10:56 AM (R42) Not Available [facility] 4 02:34:36 Sensorine ural hearing loss of bilateral ears 404054699 Active 2022 Sensorine ural hearing loss, bilateral ; Note: Date Diagnosed : 11/27/2022 10:56 AM (H90.3) Not Available [facility] 4 02:34:38 Problem Notes None recorded. Procedures Surgical History Date Name Laterality Status Provider Name and Address Organization Details Recorded Time 09/10/2024 Comp Audio with Tymps - 67129 & 47221 completed CHERELLE WONG, [facility] [address] [facility],[place] [address], [place], [address], [facility] - [facility] 09/10/2024 13:06:03 Imaging Results None recorded. Procedure Notes None recorded. Medical Equipment None Reported. Allergies Allergen ID Allergen Name Allergen Category Reaction Reaction Severity Criticality Documentation Date Start Date Code Code System Note Provider Name and Address Organization Details Recorded Time 05039 [facility] medicatio n other Not available Not available 09/02/2023 17323 RxNorm React ion: Unkno wn; Not Available [facility] 4 01:04:46 86411 Trulicity medicatio n other Not available Not available 09/02/2023 76112 96 RxNorm React ion: Unkno wn; Not Available [facility] 4 01:04:49 45661 amoxicill in medicatio n other Not available Not available 09/02/2023 723 RxNorm React ion: Unkno wn; Not Available [facility] 4 01:04:51 51939 lisinopri l medicatio n other Not available Not available 09/02/2023 37745 RxNorm React ion: Unkno wn; Not Available [facility] 4 01:04:53 Medications Name Sig Start Date Stop Date Status Note LastModified by Organization Details LastModified Time atorvastat in 20 mg tablet TAKE 1 TABLET BY MOUTH EVERY DAY active Not Available Not Available No t Available triamteren e 37.5 mg-hydroch lorothiazi de 25 mg capsule TAKE 1 CAPSULE BY MOUTH EVERY DAY active Not Available Not Available No t Available levothyrox ine 88 mcg tablet TAKE 1 TABLET BY MOUTH EVERY DAY 6 DAYS A WEEK, SKIP OR DIRECTED active Not Available Not Available No t Available OneTouch Ultra Test strips TAKE 1 EACH BY MISCELLAN EOUS ROUTE DAILY. DX E11.65 active Not Available Not Available No t Available nystatin 100,000 unit/gram topical cream APPLY TO AFFECTED AREA TWICE A DAY active Not Available Not Available No t Available glimepirid e 4 mg tablet TAKE 2 TABLETS BY MOUTH EVERY DAY active Not Available Not Available No t Available omeprazole 20 mg capsule,de layed release TAKE 1 CAPSULE BY MOUTH EVERY DAY IN THE MORNING active Not Available Not Available No t Available furosemide 20 mg tablet TAKE 1 TABLET BY MOUTH EVERY DAY active Not Available Not Available No t Available gabapentin 100 mg capsule TAKE 2 CAPSULES BY MOUTH NIGHTLY AT BEDTIME. active Not Available Not Available No t Available irbesartan 150 mg tablet TAKE 1 TABLET BY MOUTH EVERY DAY active Not Available Not Available No t Available Ecotrin 325 mg tablet,ent angelo coated active Medicatio n ID: [id number] Br and Name: Ecotrin S end Method: E-Prescri bed Subs Allowed: subs OK Medica tionGener icName: Ecotrin Not Available Not Available Not Available fluticason e propionate 50 mcg/actuat ion nasal spray,susp ension INHALE 2 SPRAYS INTO EACH NOSTRIL ONCE DAILY active Not Available Not Available No t Available metformin ER 500 mg tablet,ext ended release 24 hr TAKE 2 TABLETS BY MOUTH EVERY DAY active Not Available Not Available No t Available levothyrox ine 112 mcg tablet active Medicatio n ID: [id number] Br and Name: levothyro xine Send Method: E-Prescri bed Subs Allowed: subs OK Medica tionGener icName: levothyro xine Not Available Not Available Not Available Jardiance 25 mg tablet TAKE 1 TABLET BY MOUTH EVERY DAY active Not Available Not Available No t Available Rybelsus 7 mg tablet TAKE 1 TABLET BY MOUTH EVERY DAY BEFORE BREAKFAST active Not Available Not Available No t Available Rybelsus 3 mg tablet TAKE 1 TABLET BY MOUTH DAILY BEFORE BREAKFAST . active Not Available Not Available No t Available Ozempic 1 mg/dose (4 mg/3 mL) subcutaneo us pen injector INJECT 1 MG UNDER THE SKIN EVERY 7 DAYS active Not Available Not Available No t Available Vitals Date Recorded Body height Body mass index (BMI) Body weight Provider Name and Address Organization Details Last Updated DateTime 09/10/2024 157.48 cm 30.7 kg/m2 28545.52 g Rosangela Clemons [place] - [facility] 09/10/2024 13:30:14 Social History None recorded. Functional Status None recorded. Mental Status None recorded. Family History Nothing Reported. Medical History No medical history recorded. Gynecological HistoryNo gynecological history recorded. Obstetrics History GPAL:G 0 P 0 0 0 0 Past Encounters Encounter ID Performer Location Encounter Start Date Encounter Closed Date Diagnosis/Indication Diagnosis SNOMED-CT Code Diagnosis ICD10 Code Diagnosis IMO Codes Diagnosis Note [id number] SUPA HERNANDEZ PA-C [facility] [address] [address] 09/10/2024 12:48:29 09/10/2024 13:54:36 Dizziness and giddiness 272692507 R42 Sensorineu ral hearing loss of bilateral ears 971567502 H90.3 [id number] CHERELLE ARBOUR, AUD [facility] ld [address] [facility] [address] 09/10/2024 13:05:51 09/16/2024 08:22:42 Sensorineural hearing loss of bilateral ears 032279924 H90.3 Audiologic al evaluation results:Ri ght ear:Mild to moderate sensorineu ral hearing loss with excellent word recognitio n.Left ear:Normal sloping to moderate sensorineu ral hearing loss with excellent word recognitio n.Tympanom etry:Right Ear:Type AsLeft Ear:Type As [id number] KD SOUZA [place], CCC-A [place] [facility] [place] 100 [facility] it 100 [place] [address] 09/15/2024 10:44:26 09/17/2024 05:20:17 Sensorineural hearing loss of bilateral ears 644525684 H90.3 Hearing Aid Fitting DetailsDat e: 5Manufactu rer & Model: Phonak Audeo L70-RL Right ear Color: sandalwood Ear couplin.0 1M right; Small vented dome Serial NumbersRig ht: [id number] eft: Warranty Expiration : 04-13-2026 Accessorie s: Programs: Health Concerns Section Related Observation LastModified by Organization Detai ls LastModified Time None Recorded Concern Status LastModified by Organization Details LastModified Time None Recorded Advance Directives Directive None Recorded Payers Insurance Date Sequence Insurance Name Policy Number Policy Rodriguez Covered Member ID Rodriguez Member ID Guarantor Name 09/17/2024 1 [place] [employer] Agnes Villalba [id number] Agnes Villalba 09/17/2024 2 [place] [id number] Agnes Villalba [id number] Agnes Villalba Notes Date Note Type Note Provider Name and Address Organization Details Recorded Time 09/10/2024 text/html Audiological Evaluation HPIReported by PatientHearing LossFor hearing loss perceived, patient reportshearing loss in both ears (right ear worse)but reportsgradual onset.TinnitusFor tinnitus reported, patient reportsright ear. For sounds like, patient reportshigh pitched.DizzinessFor balance symptoms reported, patient reportsdizzinessandv ertigo. CHERELLE ARBOUR, AUD [address] [facility],[place] [address], [place], [address], [facility] - [facility] 09/10/2024 13:17:16 09/10/2024 text/html ROS as noted in the HPI 74-year-old female presents for evaluation of vertigo. She has a history of asymmetric sensorineural hearing loss, right greater than left. MRI of the IAC in 2022 showed no retrocochlear pathology but did show small lacunar infarct. She has a history of TIA in 2000 and thinks she may have had other separate instances for which she was not evaluated. She is also being evaluated for glaucoma. Recently had severe room spinning vertigo and visual disturbances without headache or weakness. She was seen at urgent care and told she had fluid in her ear and prescribed Dramamine. The vertigo has since resolved. Had no changes in her hearing during these instances. SAM ISAAC MD [address] [facility],[address], [address], [facility] - [facility] 09/11/2024 08:09:58 09/15/2024 text/html Long standing hearing loss bilaterally. has a hearing aid for the right ear but does not use consistently. KD SOUZA MA, CCC-A [address] [facility],[place] [address], [place], [address], [facility] 09/15/2024 12:32:12 OBGyn Episode No OBEpisode recorded.
--- OUTSIDE RECORDS SUMMARY | 2025-01-24 11:21 | XMS_ITS | Clinical Summary ---
Author Organization [facility] [facility] it Address [address] [place] [address] Care Team Providers Care Biometrics Experimentalist Name Role Phone Unavailable Primary Care Provider Unavailabl e Medications omeprazole (PriLOSEC) [address] Barnhart ns:Gastroesophag eal reflux disease without esophagitis TAKE 1 CAPSULE BY MOUTH EVERY DAY IN THE MORNING 90 capsule 09/06/2024 Active Motegrity 2 mg tablet TAKE ONE TABLET BY MOUTH DAILY 90 tablet 2 12/17/2024 Active Social History Tobacco Use Types Packs/Day Years Used Date Smoking Tobacco: Never Assessed Comments Unknown Sex and Gender Information Value Date Recorded Sex Assigned at Not on file Legal Sex Female 10:54 AM EST Gender Identity Not on file Sexual Orientation Not on file Plan of Treatment Upcoming Encounters Date Type Department Care Team ([facility] st Contact Info) Description 03/15/2025 11:00 AM EST Office Visit Gastroenterology - [address] [phone] All Casey MD [address] [place] [id number] Health Maintenance Due Date Last Done Comments Breast Cancer Screening 1950 Colorectal Cancer Screening: Colonoscopy 1950 DTaP,Tdap,and Td Vaccines (1 - Tdap) 1970 Pneumococcal Vaccine: 50+ Ye ars (1 of 1 - PCV) 2001 Zoster Vaccines (1 of 2) 2001 Falls Risk Assessment 03/19/2022 Hepatitis C Screening 03/19/2022 Medicare Annual Wellness Visit 03/19/2022 Osteoporosis Screening (Bone Density Screening) 03/19/2022 Social Influencers of Health Screening 03/19/2022 Depression Screening 04/21/2024 COVID-19 Vaccine ( - 2023-2 5 season) 2024 Influenza Vaccine (#1) 2024 RSV Immunization Adult [...] age to complete this topic Insurance MEDICARE [facility]
== END 2025-01-24 10:22 | disposition home or self-care (01) ==
LOC: HO.HSMS 09:54
PROVIDERS: PCP Internal Medicine; Visit Provider Psychiatry & Neurology Neurology
DX: H53.9 Unspecified visual disturbance (principal); R42 Dizziness and giddiness; G47.33 Obstructive sleep apnea (adult) (pediatric)
CPT/HCPCS: 99214; G2211

== ENCOUNTER → 2025-01-24 09:53 | Outpatient (BNVA) | payer MEDICARE, SELFPAY | PROVIDERS: PCP Internal Medicine; Visit Provider Psychiatry & Neurology Neurology | DX: G47.33 Obstructive sleep apnea (adult) (pediatric) (principal); R42 Dizziness and giddiness; H53.9 Unspecified visual disturbance | CPT/HCPCS: 99212 ==